=== PATIENT | female | born 1970 | race Caucasian/White ===

== ENCOUNTER → 2023-09-15 07:31 | Outpatient (REF) | payer OTHER, SELFPAY | LOC: HWWDC 07:31 | PROVIDERS: ATTENDING PHYSICIAN Nurse Practitioner Adult Health; FAMILY PHYSICIAN Family Medicine | DX: Z12.31 Encounter for screening mammogram for malignant neoplasm of breast (principal) | CPT/HCPCS: 77063; 77067 ==

== ENCOUNTER → 2023-09-22 10:35 | Outpatient (REF) | payer OTHER, SELFPAY | LOC: WDC 10:35 | PROVIDERS: ATTENDING PHYSICIAN Nurse Practitioner Adult Health; FAMILY PHYSICIAN Family Medicine | DX: R92.8 Other abnormal and inconclusive findings on diagnostic imaging of breast (principal) | CPT/HCPCS: 76642 ==

== ENCOUNTER → 2024-11-06 07:01 | Outpatient (REF) | payer BC, SELFPAY | LOC: WDC 07:01 | PROVIDERS: ATTENDING PHYSICIAN Nurse Practitioner Adult Health; FAMILY PHYSICIAN Family Medicine | DX: Z12.31 Encounter for screening mammogram for malignant neoplasm of breast (principal) | CPT/HCPCS: 77063; 77067 ==

== ENCOUNTER 2025-04-21 12:09 | Emergency (ER) | payer BC, SELFPAY ==
[2025-04-21] VITALS (22 sets, daily range): BP systolic 105–143; BP diastolic 52–90; BMI 23.8
[2025-04-21 12:37] LABS: Hematocrit 39.2 % (37.0-47.0); Hemoglobin 13.3 g/dL (12.0-16.0); Mean Corp Hgb Conc. 33.9 g/dL (33.0-37.0); Mean Corpuscular Volume 86.7 fL (81.0-99.0); Nucleated Red Blood Cells % 0 %; Platelet Count 270 10^3/uL (130-400); Red Cell Dist. Width 12.9 % (11.5-14.5)
[2025-04-21 12:50] LABS: ALT (SGPT) 16 U/L (0-35); AST (SGOT) 23 U/L (14-36); Albumin 5.1 g/dl (3.5-5.0); Alkaline Phosphatase 50 U/L (38-126); Blood Urea Nitrogen 14 mg/dl (7-17); Calcium 9.6 mg/dl (8.4-10.2); Carbon Dioxide 29 mmol/L (22-30); Chloride 105 mmol/L (98-107); Glucose 93 mg/dl (70-99); Lipase 127 U/L (23-300); Potassium 4.6 mmol/L (3.5-5.1); Sodium 139 mmol/L (135-145); Total Protein 7.7 g/dl (6.3-8.2); eGFR > 60.00
[2025-04-21 12:59] LABS: Troponin I < 0.012 ng/ml
--- NOTE | 2025-04-21 13:00 | ED.GENMED ---
History of Present Illness
General
Chief Complaint: Chest Pain
Source: patient, significant other and family
Exam Limitations: none
Time Seen by Provider: 04/21/25 13:00
Nursing documentation reviewed up to this point in time: agreed with
History of Present Illness
History of Present Illness:
Patient without any significant past medical history, presents to ED secondary to sudden onset of left-sided chest pain, while she was sitting at her computer working this afternoon. Chest pain today described as 'achy', with radiation to the back,
along with different sensation along her left upper chest and shoulder area. Denies any alleviating or exacerbating factors. Denies associated shortness of breath, nausea, dizziness, or diaphoresis. Denies leg pain or swelling. Denies recent
travel or surgery. Denies recent illness. Patient currently does not take any medications. Patient is an ex-smoker. However, there is family history of early heart disease. Patient states that she has never experienced any similar chest pain in
the past.
Review of Systems
Review of Systems
Allergies reviewed?: Yes
All Other Systems: ROS reviewed and negative except as documented in HPI and ROS
Constitutional: Reports no symptoms
Respiratory: Reports no symptoms; Denies trouble breathing
Cardiac: Reports chest pain; Denies diaphoresis or palpitations
ABD/GI: Reports no symptoms; Denies nausea
Musculoskeletal: Reports no symptoms
Skin: Reports no symptoms
Neurological: Reports no symptoms; Denies dizzy or numbness
Phy Exam
Physical Exam
Physical Exam:
Physical Exam
General: mild distress, not acutely ill. afebrile
Head: nc/at. eomi
Neck: supple. no meningeal signs.
Heart: s1/s2 regular rate and rhythm. no murmur
Lungs: no acute respiratory distress. clear bilaterally. chest wall nontender to palpation
Abdomen: normal bowel sounds. not tender.
Neuro: alert and oriented x 3. no focal neurological deficits
Skin: no rash
Psychiatric: well kept. interactive and cooperative
Extremities: no edema. no calf tenderness.
Scores
Heart Score for Chest Pain Patients
STEMI patient?: No
History: Slightly or Non-Suspicious
ECG: Normal
Age: >45 - <65 years
Risk Factors: 1 or 2 Risk Factors
Troponin: </= Normal Limit
Heart Score for Chest Pain Patients: 2
Heart Score Risk: 2.5% MACE over next 6 weeks
Course
Orders/Labs/Results
Orders:
Orders
04/21/25 12:11
EKG [Electrocardiogram (*1)] Urgent
Reason for Study: Chest Pain
EKG- Treatment ONCE
04/21/25 12:24
Complete Blood Count/With Diff Urgent
Comprehensive Metabolic Panel Urgent
Lipase Urgent
Troponin I Urgent
04/21/25 13:14
Aspirin Chewable [Low Strength Aspirin] 324 mg PO NOW STA
Nitroglycerin Sublingual [Nitrostat (Sublingual)] 0.4 mg SL NOW STA
04/21/25 13:15
CR Chest Portable - 1 View Urgent
Comment:
Reason For Exam: chest pain
Reason Study Needs to be Portable: Patient Unstable
04/21/25 13:35
D-Dimer Urgent
04/21/25 13:37
EKG [Electrocardiogram (*1)] Urgent
Reason for Study: Chest Pain
EKG- Treatment ONCE
04/21/25 14:50
CT Angio Chest/Abd W/Wo Iv Contrast [CT Chest/abd Angio W/wo Iv Con] Urgent
Comment:
Reason For Exam: cp radiating to back
04/21/25 16:29
Electrocardiogram (*1) Urgent
Reason for Study: Chest Pain
EKG- Treatment ONCE
04/21/25 16:41
Troponin I Urgent
Abnormal Lab Results
04/21/25
12:24
Absolute Monos (auto) 0.7 H 10^3/uL
(0.1-0.6)
Albumin 5.1 H g/dl
(3.5-5.0)
04/21/25 12:24
04/21/25 12:24
Vital Signs
Initial and Last Documented VS:
Initial Vital Signs
Temp Pulse Resp BP Pulse Ox
97.9 F 78 18 143/80 100
04/21/25 12:16 04/21/25 12:16 04/21/25 12:16 04/21/25 12:16 04/21/25 12:16
Last Documented Vital Signs
Temp Pulse Resp BP Pulse Ox
97.9 F 72 20 132/81 96
04/21/25 12:16 04/21/25 18:01 04/21/25 18:01 04/21/25 18:01 04/21/25 18:01
MDM/Problems Addressed
MDM/Problems Addressed:
Patient with an unremarkable workup in ED, including D-dimer, repeat troponin, as well as CT angiogram of chest and abdomen. Otherwise, patient remains afebrile, hemodynamically stable, and nontoxic-appearing, during extended course of observation
in ED. In light of patient's family history of heart disease, patient will be referred to cardiology via chest pain hotline, for urgent outpatient consultation. Patient advised to return to ED with evolving or worsening symptoms. Patient
expressed understanding and is in agreement with treatment plan, at time of discharge, to the care of her family.
*Pulse Oximetry
SaO2: 100
Oxygen Mode of Delivery: Room air
Patient hypoxic: no
*EKG
Interpreted by ED Provider?: Yes
EKG Intrepretation Date: 04/21/25
Heart Rate: 76
Rate: normal
Rhythm: sinus
[place]: normal axis
Interval: normal interval
*Critical Care Note
Total Time (30-74mins, 75-104mins- exclusive of procedures): Not Applicable
ED Attending Note
-
Portions of this chart may have been created with voice recognition software.� Occasional wrong word or��sound alike� substitutions may have occurred due to the inherent limitations of voice recognition software.
Discharge Plan
Departure
Patient Disposition: Home (Routine Discharge)
Date of Disposition: 04/21/25
Time of Disposition: 18:02
Patient with high blood pressure during this ER visit?: Yes
Condition: Fair
Discharge Problem:
Chest pain
Instructions: Chest Pain [facility] Follow Up
Referrals:
Tom Almanza MD [Active, Cardiology]
Irma Snider DO [Family Provider, Family Practice]
Activity Restrictions/Additional Instructions:
As discussed, please follow-up with referred billing analyst for further evaluation and treatment. Please consider return to ED with worsening symptoms.
Interventions
Interventions:
*Risk Screen - Suicide Last Done: 04/21/25 12:16
*General Assessment Last Done: 04/21/25 12:16
*Neglect/Abuse Screening Last Done: 04/21/25 12:16
*ED- Fall Risk Assessment Last Done: 04/21/25 14:42
*ED COVID-19 Vaccine History Last Done: 04/21/25 12:16
*ED Influenza Vaccine History Last Done: 04/21/25 12:16
*Nursing Disposition Last Done: 04/21/25 18:32
ED- Cardiac Assessment Last Done: 04/21/25 13:33
Discharge Date and Time
Discharge Date/Time: 04/21/25 18:33
Print Language: SALVAD[place]
[2025-04-21] MEDS: LOW STRENGTH ASPIRIN 324 MG PO (13:27)
[2025-04-21] MEDS: NITROSTAT (SUBLINGUAL) 0.4 MG SL (13:28)
[2025-04-21 14:03] LABS: D-Dimer < 0.27 ug/mlFEU (0.00-0.50)
[2025-04-21 17:11] LABS: Troponin I < 0.012 ng/ml
== END 2025-04-21 18:33 | disposition home or self-care (01) ==
LOC: EMR 12:09
PROVIDERS: Emergency Medicine; EMERGENCY PHYSICIAN Emergency Medicine; FAMILY PHYSICIAN Family Medicine
DX: R07.9 Chest pain, unspecified (principal); R03.0 Elevated blood-pressure reading, without diagnosis of hypertension; Z87.891 Personal history of nicotine dependence; Z82.49 Family history of ischemic heart disease and other diseases of the circulatory system
CPT/HCPCS: 99284; 71045; 71275; 74175; 80053; 83690; 84484; 85025; 85379; 93005; Q9967

== ENCOUNTER → 2025-05-19 14:28 | Outpatient (REF) | payer BC, SELFPAY | LOC: RCS 14:28 | PROVIDERS: ATTENDING PHYSICIAN Student in an Organized Health Care Education/Training Program; FAMILY PHYSICIAN Family Medicine | DX: R07.2 Precordial pain (principal) | CPT/HCPCS: 93306 ==

== ENCOUNTER → 2025-05-25 14:35 | Outpatient (REF) | payer BC, SELFPAY | LOC: RCS 14:35 | PROVIDERS: ATTENDING PHYSICIAN Student in an Organized Health Care Education/Training Program; FAMILY PHYSICIAN Family Medicine | DX: R07.2 Precordial pain (principal) | CPT/HCPCS: 93017 ==

== ENCOUNTER 2025-06-30 06:33 | Day surgery (SDC) | payer BC, SELFPAY | END 2025-06-30 15:21 | disposition home or self-care (01) | LOC: GI 06:33 | PROVIDERS: ATTENDING PHYSICIAN Internal Medicine Gastroenterology; FAMILY PHYSICIAN Family Medicine | DX: R12 Heartburn (principal); R19.4 Change in bowel habit; K29.50 Unspecified chronic gastritis without bleeding; K31.89 Other diseases of stomach and duodenum | CPT/HCPCS: 43239; 88305; 88342 ==